=== PATIENT | female | born 1970 | race Caucasian/White ===

== ENCOUNTER 2018-07-21 12:10 | Emergency (ER) | payer SELFPAY ==
[2018-07-21 14:47] VITALS: BP 116/84
--- NOTE | 2018-07-21 15:26 | UC ---
Lower Extremity/Ankle HPI - HPI Summary HPI Summary: stubbed left great toe yesterday, ? got bent under. Bruised and swollen - History of Current Complaint Chief Complaint: UCLowerExtremity Stated Complaint: LEFT GREAT TOE INJURY Time Seen by Provider: 07/21/18 15:11 Hx Obtained From: Patient Hx Last Menstrual Period: Uterine ablasion ?: No Onset/Duration: Sudden Onset, Lasting Days - 1, Still Present Severity Initially: Moderate Severity Currently: Mild Pain Intensity: 2 Aggravating Factor(s): Standing, Ambulation Alleviating Factor(s): Rest, Elevation, Ice Able to Bear Weight: Yes - Allergies/Home Medications Allergies/Adverse Reactions: Allergies Allergy/AdvReac Type Severity Reaction Status Date / Time No Known Allergies Allergy Verified 07/21/18 14:47 Home Medications: Home Medications Acetaminophen [Tylenol] 325 mg PO 07/21/18 [History] Naproxen Sodium [Naproxen 220 mg] 220 mg PO 07/21/18 [History] traMADol TAB* [Ultram*] 25 mg PO Q6HR 07/21/18 [History Confirmed 07/21/18] PMH/Surg Hx/FS Hx/Imm Hx Other Endocrine History: Osteoporosis Psychological History: Anxiety, Depression - Surgical History Surgical History: Yes Surgery Procedure, Year, and Place: uterine ablasion, tubaligation, gallbladder removed. - Family History Known Family History: Negative: Cardiac Disease, Hypertension - Social History Occupation: Employed Full-time Lives: With Family Alcohol Use: None Substance Use Type: Marijuana Smoking Status (MU): Light Every Day Tobacco Smoker Review of Systems All Other Systems Reviewed And Are Negative: Yes Skin: Positive: Bruising Musculoskeletal: Positive: Arthralgia - left great toe Is Patient Immunocompromised?: No Physical Exam Triage Information Reviewed: Yes Appearance: Well-Appearing, No Pain Distress, Well-Nourished Vital Signs: Initial Vital Signs Temp 97.5 F 07/21/18 14:41 Pulse 79 07/21/18 14:41 Resp 18 07/21/18 14:41 BP 116/84 07/21/18 14:41 Pulse Ox 98 07/21/18 14:41 Vital Signs Reviewed: Yes Eyes: Positive: Conjunctiva Clear Neck exam: Normal Respiratory Exam: Normal Cardiovascular Exam: Normal Musculoskeletal: Positive: ROM Limited @ - left great toe IP joint, Other: - Tender over the proximal phalynx left great toe Neurological Exam: Normal Psychological Exam: Normal Skin: Positive: Other - bruising over the left great toe Diagnostics - Radiology No standard instances Radiology Interpretation Completed By: ED Physician, Radiologist Summary of Radiographic Findings: No fracture Lower Extremity Course/Dx - Course Course Of Treatment: Post op shoe tried and does feel better. - Differential Dx/Diagnosis Differential Diagnosis/HQI/PQRI: Contusion, Fracture (Closed), Sprain, Strain Provider Diagnosis: Sprain of left great toe Discharge - Sign-Out/Discharge Documenting (check all that apply): Patient Departure All imaging exams completed and their final reports reviewed: Yes - Discharge Plan Condition: Stable Disposition: HOME Patient Education Materials: Sprain (ED) Referrals: Mateusz Geiger [Primary Care Provider] - Additional Instructions: Use the post op shoe for comfort. - Billing Disposition and Condition Condition: STABLE Disposition: Home
== END 2018-07-21 15:57 | disposition home or self-care (01) ==
LOC: UCCORT 12:10
DX: S93.502A Unspecified sprain of left great toe, initial encounter (principal); W22.8XXA Striking against or struck by other objects, initial encounter; Y92.9 Unspecified place or not applicable; F12.20 Cannabis dependence, uncomplicated
CPT/HCPCS: 99202; G0463